=== PATIENT | female | born 1975 | race Caucasian/White ===

== ENCOUNTER 2022-01-17 13:35 | Outpatient (CLI) | payer BC ==
[~2022-01-17] VITALS: Ht 162.6 cm; Wt 53.5 kg
[~2022-01-17 13:35] MED LIST: ALBUTEROL SULFATE 2.5 MG/0.5 ML INH NEB SOLN INH PRN; EPINEPHrine INJ 1 MG/ML 1ML AMP IM PRN; diphenhydrAMINE 50MG/ML VIAL IV PRN; methylPREDNISolone 125MG 2ML VIAL IV PRN
[2022-01-17 13:45] VITALS: BP 112/68
[2022-01-17] MEDS ORDERED: USTEKINUMAB 260 MG in NS 198 ML IV ONE (14:00)
[2022-01-17] MEDS ORDERED: NS 1,000 ML IV SCH (14:00)
[2022-01-17] MEDS ORDERED: ESTR1TAB PO (14:04)
[2022-01-17] MEDS ORDERED: ZOLO100T PO ×2 (14:04)
[2022-01-17 14:08] VITALS: BP 107/67
[2022-01-17] MEDS ORDERED: ALBU6.7H6 INH (14:10)
[2022-01-17] MEDS ORDERED: PROTPAK PO (14:10)
[2022-01-17] MEDS ORDERED: DICY10CA13 PO (14:10)
[2022-01-17 16:00] VITALS: BP 106/58
[2022-01-17 17:00] VITALS: BP 102/65
[2022-01-17 17:20] VITALS: BP 117/64
== END 2022-01-17 17:20 ==
LOC: M INFU 13:35
PROVIDERS: ATTEND Internal Medicine Gastroenterology
DX: K52.9 Noninfective gastroenteritis and colitis, unspecified (principal); Z88.6 Allergy status to analgesic agent; Z88.8 Allergy status to other drugs, medicaments and biological substances
CPT/HCPCS: 96365; 96366; J3358